=== PATIENT | female | born 1985 | race African-American/Black ===

== ENCOUNTER 2024-02-05 11:30 | Emergency (ER) | payer MEDICAID, OTHER ==
[~2024-02-05] VITALS: Ht 167.6 cm; Wt 107.0 kg
--- NOTE | 2024-02-05 11:50 | ED.PDOC ---
History of Present Illness HPI Comments 38F presents to the ER w/ no prior Hx associated to the c/c of UE numbness. Pt reports on having constant LEAL and sharp left sided CP which comes and goes for 2 weeks. Pt started to notice on having finger numbness which is radiating up the left arm as well as SOB for the past week and a half. Pain type of a 4/10. SHx of / Bariatric Sx. Social Hx of occasional alcohol use, but denies tobacco and substance use. Denies chills, fever, N/V/D, or other associated symptom's, modifiers, or recent injuries or sick contact at this time. Time Seen by MD: 11:45 Reviewed Notes: Nurses Notes, Medications, Allergies Information Source: Patient Mode of Arrival: Ambulatory Severity: Moderate Timing: Weeks Duration: Since onset Prehospital treatment: None Past Medical History PAST MEDICAL HISTORY: Denies Surgical History: Surgical History (Other): Bariatric Sx HONEYCOMB DECAPPER History: No Pertinent HONEYCOMB DECAPPER History Family History Family History: Reviewed,noncontributory to illness, Unknown Social History Smoker: Non-Smoker Alcohol: Occasionally Drugs: Denies Drug Use Lives In: Home Constitutional: denies: chills, diaphoresis, fatigue, fever, malaise, sweats, weakness, others EENTM: denies: blurred vision, double vision, ear bleeding, ear discharge, ear drainage, ear pain, ear ringing, eye pain, eye redness, hearing loss, mouth pain, mouth swelling, nasal discharge, nose bleeding, nose congestion, nose pain, photophobia, tearing, throat pain, throat swelling, voice changes, others Respiratory: reports: shortness of breath; denies: cough, hemoptysis, orthopnea, SOB at rest, SOB with excertion, stridor, wheezing, others Cardiovascular: reports: chest pain, left arm pain; denies: dizzy spells, diaphoresis, Dyspnea on exertion, edema, irregular heart beat, lightheadedness, palpitations, PND, syncope, others Gastrointestinal: denies: abdomen distended, abdominal pain, blood streaked bowels, constipated, diarrhea, dysphagia, difficulty swallowing, hematemesis, melena, nausea, poor appetite, poor fluid intake, rectal bleeding, rectal pain, vomiting, others Genitourinary: denies: abnormal vagina bleeding, burning, dyspareunia, dysuria, flank pain, frequency, hematuria, incontinence, pain, , vagina discharge, urgency, others Neurological: reports: headache; denies: dizziness, fainting, left sided numbness, left sided weakness, numbness, paresthesia, pre-existing deficit, right sided numbness, right sided weakness, seizure, speech problems, tingling, tremors, weakness, others Musculoskeletal: denies: back pain, gout, joint pain, joint swelling, muscle pain, muscle stiffness, neck pain, others Integumetry: denies: bruises, change in color, change in hair/nails, dryness, laceration, lesions, lumps, rash, wounds, others Allergic/Immunocompromised: denies: Difficulty Healing, Frequent Infections, Hives, Itching, others Hematologic/Lymphatic: denies: anemia, blood clots, easy bleeding, easy bruising, swollen glands, others Endocrine: denies: excessive hunger, excessive sweating, excessive thirst, excessive urination, flushing, intolerance to cold, intolerance to heat, unexplained weight gain, unexplained weight loss, others Psychiatric: denies: anxiety, bipolar disorder, depression, hopeless, panic disorder, schizophrenia, sleepless, suicidal, others All Other Systems: Reviewed and Negative Physical Exam General Appearance: No Apparent Distress HEENT: Normal ENT Inspection, Pharynx Normal, TMs Normal Neck: Full Range of Motion, Non-Tender, Normal, Normal Inspection Respiratory: Chest Non-Tender, Lungs Clear, No Accessory Muscle Use, No Respiratory Distress, Normal Breath Sounds Cardiovascular: No Edema, No JVD, No Murmur, No Gallop, Normal Peripheral Pulses, Regular Rate/Rhythm Breast Exam: Deferred Gastrointestinal: No Organomegaly, Non Tender, No Pulsatile Mass, Normal Bowel Sounds, Soft Genitalia: Deferred Pelvic: Deferred Rectal: Deferred Extremities: No calf tenderness, Normal capillary refill, Normal inspection, Normal range of motion, Non-tender, No pedal edema Musculoskeletal : Apperance: Normal Neurologic: Alert, auditing manager II-XII nml as Tested, No Motor Deficits, Normal Affect, Normal Mood, No Sensory Deficits Cerebellar Function: Normal Reflexes: Normal Skin: Dry, Normal Color, Warm Lymphatic: No Adenopathy Was a procedure done? Was a procedure done?: No EKG EKG : Pulse Rate (adult): 76 [place]: Normal Cardiac Rhythm: NSR Hypertrophy: LAE, LVH Differential Dx Considerations may include: Viral syndrome, atypical chest pain, headache, generalized weakness X-Ray, Labs, Meds, VS Vital Signs Date Time Temp Pulse Resp B/P (MAP) Pulse Ox O2 Delivery O2 Flow Rate FiO2 02/05/24 12:04 76 02/05/24 11:51 76 02/05/24 11:50 98.1 84 16 136/92 (107) 98 Lab Test 02/05/24 13:06 02/05/24 12:00 02/05/24 11:46 Range/Units Troponin I High Sensitivity Pending < 3 L </=34 ng/L White Blood Count 4.3 L 4.4-10.8 10^3/uL Red Blood Count 4.48 4.0-5.20 10^6/uL Hemoglobin 12.1 L 12.2-16.2 g/dL Hematocrit 36.9 36.0-46.0 % Mean Corpuscular Volume 82.4 80.0-100.0 fL Mean Corpuscular Hemoglobin 27.1 L 28.0-32.0 pg Mean Corpuscular Hemoglobin Concent 32.9 32.0-36.0 g/dL Red Cell Distribution Width 14.1 11.8-14.3 % Platelet Count 367 140-450 10^3/uL Mean Platelet Volume 7.6 6.9-10.8 fL Neutrophils (%) (Auto) 56.8 37.0-80.0 % Lymphocytes (%) (Auto) 35.1 10.0-50.0 % Monocytes (%) (Auto) 5.8 0.0-12.0 % Eosinophils (%) (Auto) 1.0 0.0-7.0 % Basophils (%) (Auto) 1.3 0.0-2.0 % Neutrophils # (Auto) 2.5 1.6-8.6 10 ^3/uL Lymphocytes # (Auto) 1.5 0.4-5.4 10 ^3/uL Monocytes # (Auto) 0.2 0-1.3 10 ^3/uL Eosinophils # (Auto) 0 0-0.8 10 ^3/uL Basophils # (Auto) 0.1 0-0.2 10 ^3/uL Nucleated Red Blood Cells 0.2 % Sodium Level 139 136-145 mmol/L Potassium Level 4.3 3.5-5.1 mmol/L Chloride Level 107 98-107 mmol/L Carbon Dioxide Level 27 20-31 mmol/L Anion Gap 5 5-15 Blood Urea Nitrogen 15 9-23 mg/dL Creatinine 0.94 0.550-1.02 mg/dL Glomerular Filtration Rate Calc 80 >90 mL/min BUN/Creatinine Ratio 16.0 10.0-20.0 Serum Glucose 126 H 74-106 mg/dL Calcium Level 9.5 8.7-10.4 mg/dL Urine Color Yellow Yellow Urine Clarity Clear Clear Urine pH 7.0 5.0-9.0 Urine Specific [place] 1.030 1.001-1.035 Urine Protein Trace H Negative Urine Ketones Negative Negative Urine Blood Negative Negative /uL Urine Nitrite Negative Negative Urine Bilirubin Negative Negative Urine Urobilinogen 4 H Negative mg/dL Urine Leukocyte Esterase Negative Negative /uL Urine RBC 3 0 - 4 /hpf Urine WBC 4 0 - 5 /hpf Urine Squamous Epithelial Cells Few <5 /hpf Urine Bacteria None seen None Seen /hpf Urine Mucus Few None Seen Urine Glucose Normal Normal mg/dL The CT scan of the head is negative The urine test is negative The CBC and chemistry panel are within normal limits The troponin level is negative At this time the patient will be discharged with a diagnosis of possible viral syndrome The patient will return to the emergency department's condition worsens Images Reviewed?: Images reviewed and evaluated by me Time of 1ST Reevaluation: 12:15 Reevaluation 1ST: Unchanged Patient Education/Counseling: Diagnosis, Treatment, Prognosis, Need For Follow Up Family Education/Counseling: No Family Present Departure 1 Departure Time of Disposition: 14:03 Impression: Primary Impression: Viral syndrome Disposition: 01 HOME / SELF CARE / HOMELESS Condition: Fair Discharged With: Self Critical Care Note Critical Care Time?: No Stability Stability form required: No Heart Score Heart Score: Heart Score Response (Comments) Value History N/A 0 EKG N/A 0 Age N/A 0 Risk Factors N/A 0 Troponin N/A 0 Total 0 I personally scribed for ELEAZAR GUERRA MD ([email or web address]) on 02/05/24 at 11:50. Electronically submitted by Graham Calderon ([email or web address]). ELEAZAR GUERRA MD Feb 05, 2024 11:50
[2024-02-05 12:33] LABS: Basophils # (auto) 0.1 10 ^3/uL (0-0.2); Basophils % (auto) 1.3 % (0.0-2.0); Eosinophils # (auto) 0 10 ^3/uL (0-0.8); Hematocrit 36.9 % (36.0-46.0); Hemoglobin 12.1 g/dL (12.2-16.2); Lymphocytes # (auto) 1.5 10 ^3/uL (0.4-5.4); Lymphocytes % (auto) 35.1 % (10.0-50.0); Mean Corpuscular Hemoglobin 27.1 pg (28.0-32.0); Mean Corpuscular Hgb Conc. 32.9 g/dL (32.0-36.0); Mean Corpuscular Volume 82.4 fL (80.0-100.0); Monocytes # (auto) 0.2 10 ^3/uL (0-1.3); Monocytes % (auto) 5.8 % (0.0-12.0); Neutrophils # (auto) 2.5 10 ^3/uL (1.6-8.6); Neutrophils % (auto) 56.8 % (37.0-80.0); Nucleated Red Blood Cells % 0.2 %; Platelet Count (auto) 367 10^3/uL (140-450); Red Blood Cells 4.48 10^6/uL (4.0-5.20); Red Cell Distribution Width 14.1 % (11.8-14.3); White Blood Cell 4.3 10^3/uL (4.4-10.8)
[2024-02-05 12:41] LABS: Anion Gap 5 (5-15); Calcium 9.5 mg/dL (8.7-10.4); Carbon Dioxide 27 mmol/L (20-31); Chloride 107 mmol/L (98-107); Potassium 4.3 mmol/L (3.5-5.1); Sodium 139 mmol/L (136-145)
[2024-02-05 12:47] LABS: Blood Urea Nitrogen 15 mg/dL (9-23)
[2024-02-05 12:50] LABS: Glucose 126 mg/dL (74-106)
[2024-02-05 13:11] LABS: Urine Bacteria None Seen /hpf (None Seen)
[2024-02-05 13:28] LABS: Urine Blood Negative /uL (Negative); Urine Clarity Clear (Clear); Urine Color Yellow (Yellow); Urine Mucus FEW (None Seen); Urine Protein, UAD TRACE (Negative); Urine Urobilinogen 4 mg/dL (Negative); Urine WBC 4 /hpf (0 - 5)
--- NOTE | 2024-02-05 13:31 | DVH ---
EXAM: CT HEAD WITHOUT CONTRAST HISTORY: LEAL COMPARISON: None TECHNIQUE: Axial images of the head were obtained and reformatted in coronal and sagittal planes. All CT scans at this medical facility are performed using dose modulation techniques as appropriate t o a performed exam including the following: Automated exposure control was utilized; adjustment of th e MA and/or KV according to patient size; and use of iterative reconstruction technique. CT Dose: CTDI volume is 57 mGy. Dose-length product is 807 mGy*cm FINDINGS: There is no evidence of acute intracranial hemorrhage, mass, mass effect midline shift. There is no h ydrocephalus or extra-axial fluid collection. Cavazos-white matter differentiation is maintained. The visualized paranasal sinuses and mastoid air cells are clear. The calvarium is intact. IMPRESSION: 1. No acute intracranial process. HS:Y
[2024-02-05 14:20] VITALS: BP 154/98; PULSE 87; RESP 18; TEMP 98; O2SAT 98
--- NOTE | 2024-02-06 06:38 | ECG ---
[facility] Test Date: 2024-02-05 Test Time: 11:51:59 Pat Name: ROLANDO SYED Department: ER Room: Gender: F Manager Er: DR DIAZ: 1985 Requested By: ELEAZAR GUERRA Order Number: [id number] Reading MD: Jefry Ellington Measurements Intervals [place] Rate: 76 P: 49 AK: 205 QRS: -5 QRSD: 86 T: 35 QT: 447 QTc: 503 Interpretive Statements Sinus rhythm Borderline prolonged AK interval Probable left atrial enlargement Left ventricular hypertrophy Nonspecific T abnrm, anterolateral leads Borderline prolonged QT interval Electronically Signed On 02-06-2024 10:30:32 PST by Jefry Ellington Please click the below link to view image of tracing.
== END 2024-02-05 14:23 | disposition home or self-care (01) ==
LOC: ER 11:30
DX: B34.9 Viral infection, unspecified (principal); Z98.890 Other specified postprocedural states
CPT/HCPCS: 36415; 70450; 80048; 81001; 84484; 85025; 93005